=== PATIENT | female | born 1995 | race Caucasian/White ===

== ENCOUNTER → 2021-07-01 09:44 | Outpatient (CLI) | payer BC, SELFPAY ==
[2021-07-01 23:19] LABS: SARS-CoV-2 RNA PCR Negative
== END ==
PROVIDERS: PCP Emergency Medicine; Visit Provider Emergency Medicine
DX: J03.90 Acute tonsillitis, unspecified (principal); Z20.822 Contact with and (suspected) exposure to COVID-19
CPT/HCPCS: C9803; U0003; U0005

== ENCOUNTER → 2021-08-15 10:33 | Outpatient (CLI) | payer BC, SELFPAY ==
--- NOTE | ~2021-08-15 | XR_ITS ---
EXAMINATION: XR chest 2V 08/15/2021 10:56 INDICATION: Reactive airway disease PROCEDURE: 2 view chest COMPARISON: 07/13/2019 FINDINGS: The lungs are clear. The cardiomediastinal silhouette is within normal limits. There are no pleural effusions. There is no pneumothorax suspected. IMPRESSION: 1: NO ACUTE CARDIOPULMONARY DISEASE. Reviewed, dictated and finalized at location A. NI RELATIONS OFFICER
== END ==
PROVIDERS: PCP Emergency Medicine; Visit Provider Emergency Medicine
DX: R06.02 Shortness of breath (principal)
CPT/HCPCS: 71046

== ENCOUNTER → 2021-08-16 00:30 | Outpatient (CLI) | payer BC, SELFPAY ==
[2021-08-16 16:39] LABS: SARS-CoV-2 RNA PCR Negative
== END ==
PROVIDERS: PCP Emergency Medicine; Visit Provider Emergency Medicine
DX: R68.89 Other general symptoms and signs (principal); Z20.822 Contact with and (suspected) exposure to COVID-19
CPT/HCPCS: C9803; U0003; U0005

== ENCOUNTER 2022-04-27 13:47 | Outpatient (CLI) | payer BC, OTHER, SELFPAY ==
--- NOTE | ~2022-04-27 | XR_ITS ---
XR tibia fibula LT 2V DATE: 04/27/2022 14:35 INDICATION: Left lower lateral lower leg mass TECHNIQUE: AP and lateral views COMPARISON: None FINDINGS: No fracture or dislocation, periosteal reaction or bone destruction. Normal alignment at th e and ankle joints. No subcutaneous emphysema or radiopaque foreign body or soft tissue abnormal calcification is noted. IMPRESSION: Negative Reviewed, dictated and finalized at location A. ATOR OPERATOR IMPRESSION: Negative
--- NOTE | ~2022-04-27 | XR_ITS ---
XR facial bones min 3V DATE: 04/27/2022 14:35 INDICATION: Bilateral temporal swelling for 2 days. Headaches. TECHNIQUE: Color, mosley, lateral and submental vertical views COMPARISON: None FINDINGS: Nasal bones and anterior maxillary spine appear intact. The frontozygomatic sutures appear normal. Orbital rims and floors appear intact. Zygomatic arches appear normal. No facial fracture is detected. Normal sella turcica. The paranasal sinuses and mastoid air cells appear normally developed and aerated. IMPRESSION: Negative Reviewed, dictated and finalized at location A. UTER AIDED DESIGN DESIGNER IMPRESSION: Negative
[2022-04-27 15:31] LABS: Appearance Urine Slightly Cloudy (Clear); Bilirubin Urine Negative (Negative); Blood Urine Negative (Negative); Color Urine Yellow (Yellow); Glucose Urine UA Negative (Negative); Ketones Urine Negative (Negative); Leukocyte Esterase Ur Negative LEU/UL (NEGATIVE); Nitrate Urine Negative (Negative); Protein Urine Negative (Negative)
[2022-04-27 15:40] LABS: Bacteria Urine Trace /hpf; Mucus Urine Rare /lpf; RBC Urine 0-2 /hpf (0-2); Squamous Epithelial Cell Urine Few /hpf (Few); WBC Urine 0-3 /hpf (0-3)
[2022-04-27 15:53] LABS: Free T4 Free Thyroxine 0.18 ng/mL (0.78-2.19); Vitamin D 25 Hydroxy 39.3 ng/mL
[2022-04-27 16:12] LABS: Hematocrit 41.8 % (37.0-47.0); Hemoglobin 13.8 g/dL (12.0-15.0); Mean Corpuscular Hemoglobin 29.3 pg (26-34); Mean Corpuscular Volume 88.7 fl (80-100); Mean Platelet Volume 10.6 fl (7.4-10.4); Platelet Count Result 217 k/mm3 (150-375); Red Blood Count 4.71 M/mm3 (4.2-5.4); Red Cell Distribution Width 14.2 % (11.5-14.5); White Blood Count 5.4 K/mm3 (4.5-10.0)
[2022-04-27 16:32] LABS: Add Urine Microscopic? YES
[2022-04-27 16:42] LABS: Rheumatoid Factor < 8.6 IU/ML (<12)
[2022-04-27 16:53] LABS: Erythrocyte Sedimentation Rate 2 mm/hr (0-20)
[2022-04-27 17:33] LABS: Alanine Aminotransferase 27 U/L (6-35); Albumin Level 5.1 g/dL (3.5-5.1); Alkaline Phosphatase 39 U/L (38-126); Anion Gap 16 mmol/L (8-16); Aspartate Amino Transferase 31 U/L (14-36); Bilirubin,Total 0.6 mg/dL (0.2-1.3); Blood Urea Nitrogen 16 mg/dL (7-17); Calcium 8.8 mg/dL (8.4-10.2); Carbon Dioxide 24 mmol/L (22-30); Chloride 101 mmol/L (98-107); Cholesterol 239 mg/dL (0-200); Estimated Glomerular Filt Rate > 60; Glucose 78 mg/dL (65-110); HDL Direct 53 mg/dL; Potassium 3.8 mmol/L (3.4-5.0); Sodium 141 mmol/L (137-145); Triglycerides 79 mg/dL (<150)
[2022-04-27 17:44] LABS: LDL Cholesterol Direct 133 mg/dL
[2022-04-27 17:53] LABS: Hemoglobin A1C 5.6 % (<5.7)
[2022-04-27 20:51] LABS: Microalbumin Urine Random < 6.0 mg/L (0-16.7)
[2022-04-27 21:18] LABS: Thyroid Stimulating Hormone > 100.000 uIU/mL (0.465-4.680)
[2022-04-28 10:42] LABS: Creatinine Urine 126.4 mg/dL; MALB Creatinine Ratio < 4.7 mg/g (0-30)
[2022-05-02 06:19] LABS: Anti Nuclear Antibody Pattern Nuclear, Speckled; Anti Nuclear Antibody Titer 1:40 (Negative)
== END 2022-04-27 13:48 | disposition home or self-care (01) ==
LOC: ANHIMG 13:52
PROVIDERS: PCP Emergency Medicine; Visit Provider Emergency Medicine
DX: M79.89 Other specified soft tissue disorders (principal)
CPT/HCPCS: 36415; 70150; 73590; 80053; 80061; 81001; 82043; 82306; 83036; 84439; 84443; 85027; 85652; 86038; 86039; 86430

== ENCOUNTER 2022-05-31 09:00 | Outpatient (CLI) | payer BC, OTHER, SELFPAY ==
[2022-05-31 11:09] LABS: Free T4 Free Thyroxine 0.82 ng/mL (0.78-2.19)
[2022-06-04 05:03] LABS: Thyroid Peroxidase Antibodies 3007 IU/mL (<9)
[2022-06-05 07:58] LABS: Triiodothyronine T3 Free 3.4 pg/mL (2.3-4.2)
== END 2022-05-31 09:01 | disposition home or self-care (01) ==
LOC: ANHLAB 09:05
PROVIDERS: PCP Emergency Medicine; Visit Provider Emergency Medicine
DX: J06.9 Acute upper respiratory infection, unspecified (principal); E03.9 Hypothyroidism, unspecified
CPT/HCPCS: 36415; 84439; 84443; 84481; 86376

== ENCOUNTER 2022-06-01 15:38 | Outpatient (CLI) | payer BC, OTHER, SELFPAY ==
--- NOTE | ~2022-06-01 | US_ITS ---
EXAMINATION: US thyroid DATE: 06/01/2022 16:18 INDICATION: Hypothyroidism TECHNIQUE: Multiple ultrasound images of the thyroid were obtained. COMPARISON: None. FINDINGS: The right thyroid lobe measures 5.2 x 1.8 x 2.0 cm. The left thyroid lobe measures 4.6 x 1.6 x 1.7 c m. The thyroid isthmus measures 4 mm in thickness. Coarsened echotexture and heterogeneous decreased echogenicity with pseudo-nodular pattern throughout the thyroid suggestive of Jessica's thyroiditis . No discrete nodules identified. IMPRESSION: 1. Coarsened echotexture and heterogeneous decreased echogenicity with pseudo-nodular pattern through out the thyroid suggestive of Jessica's thyroiditis. Reviewed, dictated and finalized at location A. SROOM COORDINATOR IMPRESSION: 1. Coarsened echotexture and heterogeneous decreased echogenicity with pseudo-n odular pattern throughout the thyroid suggestive of Jessica's thyroiditis.
== END 2022-06-01 15:39 | disposition home or self-care (01) ==
PROVIDERS: PCP Emergency Medicine; Visit Provider Emergency Medicine
DX: E03.9 Hypothyroidism, unspecified (principal)
CPT/HCPCS: 76536

== ENCOUNTER 2023-03-28 07:05 | Outpatient (CLI) | payer BC, OTHER, SELFPAY | END 2023-03-28 07:06 | disposition home or self-care (01) | PROVIDERS: PCP Emergency Medicine; Referring Provider Emergency Medicine; Visit Provider Internal Medicine Endocrinology, Diabetes & Metabolism | DX: E03.8 Other specified hypothyroidism (principal); E06.3 Autoimmune thyroiditis | CPT/HCPCS: 36415; 84443 ==